=== PATIENT | male | born 1995 | race Caucasian/White ===

== ENCOUNTER 2016-04-11 11:50 | Emergency (ER) | payer OTHER ==
[~2016-04-11] VITALS: Ht 167.6 cm; Wt 95.3 kg
[2016-04-11 12:07] VITALS: BP 145/71
--- NOTE | 2016-04-11 12:21 | NUR ---
DR. KUMAR AT BEDSIDE
[2016-04-11] MEDS ORDERED: KETOROLAC 60 MG/2 ML VIAL IM ONE (12:25)
[2016-04-11] MEDS ORDERED: ACETAMIN/CODEINE 120/12MG-5ML 5 ML UDC PO ONE (12:25)
--- NOTE | 2016-04-11 12:42 | NUR ---
PT IN BED, HOB TALKING IN THE PHONE, PT AAO, PAIN LEVEL 10/10
--- NOTE | 2016-04-11 12:43 | NUR ---
PATIENT PRESENTS TO ED WITH DUE TO UPPER BACK PAIN X1 WEEK . PT STATES I DIDNT FALL DOWN BUT I DO A LOT OF RUNNING, DENIES N/V/D; SKIN IS PINK/WARM/DRY; AAOX4 WITH EVEN AND STEADY GAIT; LUNGS CLEAR BL; HR EVEN AND REGULAR; PT DENIES ANY FEVER, CP, SOB, OR COUGH AT THIS TIME; PATIENT STATES PAIN OF 10/10 AT THIS TIME; PATIENT POSITIONED FOR COMFORT; HOB ELEVATED; BEDRAILS UP X2; BED DOWN.
--- NOTE | 2016-04-11 12:50 | NUR ---
PT WENT FOR XRAY VIA [facility].
--- NOTE | 2016-04-11 13:15 | NUR ---
MOTHER AT BEDSIDE, PT STILL IN XRAY.
--- NOTE | 2016-04-11 13:19 | NUR ---
PT BACK FROM [facility],
--- NOTE | 2016-04-11 13:38 | NUR ---
PT AAO, 12/09 PAIN , MOTHER AT BEDSIDE
--- NOTE | 2016-04-11 14:26 | NUR ---
DR. KUMAR AT BEDSIDE
[2016-04-11 14:38] VITALS: BP 118/73
--- NOTE | 2016-04-11 14:39 | NUR ---
Patient discharged with v/s stable. Written and verbal after care instructions given and explained. Patient alert, oriented and verbalized understanding of instructions. Ambulatory with steady gait,USING CANE. All questions addressed prior to discharge. ID band removed. Patient advised to follow up with PMD. Rx of MOTRIN AND TYLENOL WITH CODEINE given. Patient educated on indication of medication including possible reaction and side effects. Opportunity to ask questions provided and answered.MOTHER WITH THE PT
== END 2016-04-11 14:39 | disposition home or self-care (01) ==
LOC: MED 12:06
DX: M54.5 Low back pain (principal); J45.909 Unspecified asthma, uncomplicated; Z88.5 Allergy status to narcotic agent
CPT/HCPCS: 71010; 72072; 96372; 99284; J1885

== ENCOUNTER 2016-06-26 15:57 | Emergency (ER) | payer OTHER ==
[~2016-06-26] VITALS: Ht 175.3 cm; Wt 94.3 kg
[2016-06-26 16:17] VITALS: BP 126/76
--- NOTE | 2016-06-26 16:32 | NUR ---
Patient wheelchair assisted to bed 3 at this time.
[2016-06-26] MEDS ORDERED: NACL 0.9% 1,000 ML IV ONE (16:35)
[2016-06-26] MEDS ORDERED: KETOROLAC 30 MG/ML VIAL IVP ONE (16:35)
[2016-06-26] MEDS ORDERED: ONDANSETRON 4 MG/2 ML VIAL IVP ONE (16:35)
--- NOTE | 2016-06-26 16:35 | NUR ---
21M BIB FAMILY C/O NAUSEA/VOMITING/DIARRHEA X TODAY; PT STATES HAD 10 EPISODES OF DIARRHEA YESTERDAY, AND OVER 10 EPISODES OF VOMITING TODAY; PT C/O THROBBING EPIGASTRIC PAIN, RADIATES X 4 QUADRANTS OF ABDOMEN, 8/10 X TODAY; ABDOMEN SOFT, NON-TENDER, ACTIVE BOWEL SOUNDS X 4 QUADRANTS; PT A&OX4, PERRL, BL LUNG SOUNDS CLEAR, RR EVEN/UNLABORED, SKIN IS WARM/DRY/INTACT AT THIS TIME; PT STATES FEELS FATIGUED; PT PLACED ON MONITOR, RESTING IN BED W/ HOB ELEVATED AND IN LOWEST POSITION; POSITIONED FOR COMFORT; ER MD MADE AWARE OF STATUS. WILL CONTINUE TO MONITOR.
[2016-06-26] MEDS ORDERED: POTASSIUM CHLORIDE 20% 40 MEQ/15 ML UDC PO ONE (17:15)
[2016-06-26] MEDS ORDERED: DIPHENOXYLATE /ATROPINE 2.5 MG TAB PO ONE (17:15)
--- NOTE | 2016-06-26 17:47 | NUR ---
PT AMBULATED TO RESTROOM AT THIS TIME; NO ACUTE DISTRESS NOTED AT THIS TIME.
--- NOTE | 2016-06-26 17:55 | NUR ---
IV removed, catheter intact and site benign. Applied folded 4x4 gauze and tape to stop bleeding. PT TOLERATED PROCEDURE WELL.
[2016-06-26 17:59] VITALS: BP 119/66
--- NOTE | 2016-06-26 17:59 | NUR ---
Patient discharged with v/s stable. Written and verbal after care instructions given and explained. Patient alert, oriented and verbalized understanding of instructions. Ambulatory with steady gait. All questions addressed prior to discharge. ID band removed. Patient advised to follow up with PMD. Rx of POTASSIUM CHLORIDE 20MEQ, ZOFRAN ODT 4MG & LOMOTIL given. Patient educated on indication of medication including possible reaction and side effects. Opportunity to ask questions provided and answered.
== END 2016-06-26 17:59 | disposition home or self-care (01) ==
LOC: MED 15:57
DX: E87.6 Hypokalemia (principal); E86.0 Dehydration; K52.9 Noninfective gastroenteritis and colitis, unspecified; J45.909 Unspecified asthma, uncomplicated; Z88.5 Allergy status to narcotic agent
CPT/HCPCS: 36415; 80053; 82948; 83690; 85025; 96361; 96374; 96375; 99284; J1885; J2405; J7030

== ENCOUNTER 2016-12-16 21:36 | Emergency (ER) | payer OTHER ==
[~2016-12-16] VITALS: Ht 175.3 cm; Wt 54.4 kg
--- NOTE | 2016-12-16 21:46 | NUR ---
PT TAKEN TO BED 8
[2016-12-16 21:51] VITALS: BP 165/100
--- NOTE | 2016-12-16 21:58 | NUR ---
Dr. Whitaker evaluating patient at bedside.
[2016-12-16] MEDS ORDERED: NACL 0.9% 2,000 ML IV ONE (22:00)
[2016-12-16] MEDS ORDERED: LORazepam 2 MG/ML VIAL IVP ONE (22:00)
--- NOTE | 2016-12-16 22:00 | NUR ---
21/M CAME IN UNABLE TO AMBULATE SELF, HE REPORTED HE SMOKED WAX AND MARIJUANA. PT ALERT AND ORIENTED TO SELF BUT WITH DELAYED AND GARBLED SPEECH, GCS 15. PERRLA, 3MM SLUGGISH.LUNG SOUNDS CBTA, SINUS TACHY 115, SATS 98% ON RA. DENIES SOB AT THIS TIME. HX: APPENDECTOMY, DENIES RX AT HOME. PATIENT POSITIONED FOR COMFORT; HOB ELEVATED; BEDRAILS UP X2; BED DOWN. ER MD MADE AWARE OF PT STATUS.
[2016-12-16 22:37] LABS: BARBITURATE, URINE NEG. ng/ml (NEG <=200); BENZODIAZEPINE, URINE NEG. ng/mL (NEG <=200); CANNABINOID, URINE POS. ng/mL (NEG <=50); COCAINE, URINE NEG. ng/mL (NEG <=300); OPIATE, URINE NEG. ng/mL (NEG <=2000); PHENCYCLIDINE SCREEN,URINE NEG. ng/mL (NEG <=25)
[2016-12-16 23:40] VITALS: BP 112/78
--- NOTE | 2016-12-16 23:40 | NUR ---
Patient discharged with v/s stable. Written and verbal after care instructions given and explained. Patient verbalized understanding. Ambulatory with steady gait. All questions addressed prior to discharge. Advised to follow up with PMD. IV removed, catheter intact and site benign. Applied folded 4x4 gauze and tape to stop bleeding.
== END 2016-12-16 23:40 | disposition home or self-care (01) ==
LOC: MED 21:36
DX: F12.10 Cannabis abuse, uncomplicated (principal); J45.909 Unspecified asthma, uncomplicated; Z88.5 Allergy status to narcotic agent
CPT/HCPCS: 80305; 93005; 96361; 96374; 99285; J2060; J7030

== ENCOUNTER 2017-01-24 16:17 | Emergency (ER) | payer OTHER ==
[~2017-01-24] VITALS: Ht 170.2 cm; Wt 72.6 kg
[2017-01-24 16:22] VITALS: BP 132/74
--- NOTE | 2017-01-24 19:33 | NUR ---
AMBULATED TO ER BED 1
--- NOTE | 2017-01-24 19:35 | NUR ---
21/M CAME IN W C/O 10/10 SHARP CHEST, CONSTANT X THIS MORNING. PT REPORTS HAVING GENERALIZED WEAKNESS AND HAD FLU THIS WEEK, C/O PAIN DURING INSPIRATION. 20RR EVEN AND UNLABORED, 100%RA, ALL LUNG SOUNDS CBTA, 88HR EVEN AND REGULAR. DENIES N/V/D,FEVERS, SOB/COUGH AT THIS TIME, BS ACTIVE X 4, ABD SOFT AND ROUND, +TENDERNESS TO EPIGASTRIC AREA. PT PLACED ON [employer].
--- NOTE | 2017-01-24 20:42 | NUR ---
XRAY AT BEDSIDE
[2017-01-24] MEDS ORDERED: KETOROLAC 60 MG/2 ML VIAL IM ONE ×2 (21:18→21:35)
[2017-01-24 21:45] VITALS: BP 113/65
--- NOTE | 2017-01-24 21:45 | NUR ---
Patient discharged with v/s stable. Written and verbal after care instructions given and explained TO MOTHER. Patient verbalized understanding. Ambulatory with steady gait. All questions addressed prior to discharge. Advised to follow up with PMD.
== END 2017-01-24 21:45 | disposition home or self-care (01) ==
LOC: MED 16:17
DX: R53.1 Weakness (principal); R07.89 Other chest pain; B34.9 Viral infection, unspecified; F41.9 Anxiety disorder, unspecified; J45.909 Unspecified asthma, uncomplicated; Z88.5 Allergy status to narcotic agent
CPT/HCPCS: 71010; 93005; 96372; 99284; J1885; Q0092

== ENCOUNTER 2019-02-24 18:55 | Emergency (ER) | payer OTHER ==
[~2019-02-24] VITALS: Ht 175.3 cm; Wt 93.9 kg
[2019-02-24 19:03] VITALS: BP 124/74
--- NOTE | 2019-02-24 22:52 | NUR ---
23 YO M BIB SELF WITH GIRLFRIEND ACCOMPANYING. C/O 09/08 NON RADIATING, POKING LEFT HEEL PAIN X APPROX 2 DAYS. PT STATES HE JUMPED A FENCE AROUND 0200 ON 02/23 AND LANDED WRONG ON FOOT. PT TX'D AT HOME WITH ICE AND IBUPROFEN AND REPORTS TEMPORARY RELIEF AND REDUCTION IN SWELLING. PT STATES HE HAS TO WALK ON HIS TOES; CANNOT BEAR WEIGHT ON HEEL. ALSO REPORTS TINGLING TO HEEL RADIATING INTO TOES. NO DISCOLORATION OR SWELLING NOTED. PEDAL PULSES STRONG, EQUAL. CAP REFILL LESS THAN 3 SECONDS. PMH-- APPENDECTOMY X 10 YEARS AGO RX-- IBUPROFEN YESTERDAY
--- NOTE | 2019-02-25 00:35 | NUR ---
DR BISHOP AT BEDSIDE.
--- NOTE | 2019-02-25 00:40 | NUR ---
NADAID PLACED ON PT FINGER PER REQUEST
--- NOTE | 2019-02-25 00:40 | NUR ---
PATIENT DC BY DR BISHOP. INSTRUCTIONS GIVEN BY DR BISHOP. AMB
[2019-02-25 00:50] VITALS: BP 124/74
== END 2019-02-25 00:50 | disposition home or self-care (01) ==
LOC: MED 18:55
DX: S90.32XA Contusion of left foot, initial encounter (principal); J45.909 Unspecified asthma, uncomplicated; Z90.49 Acquired absence of other specified parts of digestive tract; Z88.5 Allergy status to narcotic agent; X58.XXXA Exposure to other specified factors, initial encounter; Y93.39 Activity, other involving climbing, rappelling and jumping off; Y92.89 Other specified places as the place of occurrence of the external cause; Y99.8 Other external cause status
CPT/HCPCS: 73650; 99283

== ENCOUNTER 2020-09-01 11:13 | Emergency (ER) | payer OTHER ==
[~2020-09-01] VITALS: Ht 175.3 cm; Wt 100.7 kg
[2020-09-01 11:17] VITALS: BP 134/70
--- NOTE | 2020-09-01 11:34 | NUR ---
PT TAKEN TO BED 1.
--- NOTE | 2020-09-01 11:42 | NUR ---
25 YEAR OLD MALE COMPLAINS OF 9/10 SHARP CHEST PAIN X LAST NIGHT. PT STATES PAIN RADIATES TO LEFT ARM. PT DENIES SOB, DENIES N/V/D. PT DENIES PREVIOUS CHEST PAIN IN PAST. PT AOX4, BREATHING EVEN AND UNLABORED, SKIN WAMR AND DRY. BED IN LOWEST POSITION, LOCKED, BED RAIL UPX1. PMH - ASTHMA, HLD, APPENDECTOMY ALLERGIES - MORPHINE
[2020-09-01 12:41] LABS: BASOPHILS % (AUTO) 0.8 % (0.0-2.0); EOSINOPHILS # (AUTO) 0.2 K/uL (0-0.4); HEMATOCRIT 38.5 % (36-52); HEMOGLOBIN 12.9 g/dL (12.0-18.0); LYMPHOCYTES # (AUTO) 1.6 K/uL (2.0-11.5); LYMPHOCYTES % (AUTO) 31.5 % (20.5-51.1); MEAN CORPUSCULAR HEMOGLOBIN 28 pg (27-31); MEAN CORPUSCULAR HGB CONC 34 g/dL (33-37); MEAN CORPUSCULAR VOLUME 83.7 fL (80-94); MONOCYTES # (AUTO) 0.4 K/uL (0.8-1.0); MONOCYTES % (AUTO) 8.1 % (1.7-9.3); NEUTROPHILS # (AUTO) 2.9 K/uL (1.8-7.7); NEUTROPHILS % (AUTO) 56.6 % (42.2-75.2); PLATELET COUNT (AUTO) 255 K/uL (140-450); RED BLOOD CELL COUNT(AUTO) 4.59 MIL/uL (4.20-6.10); RED CELL DISTRIBUTION WIDTH 14.7 % (11.6-13.7); WHITE BLOOD COUNT (AUTO) 5.1 K/uL (4.8-10.8)
[2020-09-01 12:45] LABS: ALBUMIN 4.1 g/dL (3.4-5.0); ANION GAP 9.7 (8-16); CARBON DIOXIDE 27.3 mmol/L (21-32); CREATININE 0.7 mg/dL (0.6-1.3); TOTAL BILIRUBIN 0.3 mg/dL (0.0-1.0)
--- NOTE | 2020-09-01 13:45 | NUR ---
Patient discharged with v/s stable. Written and verbal after care instructions about pleurisy given and explained. Patient verbalized understanding. Ambulatory with steady gait. All questions addressed prior to discharge. Advised to follow up with PMD.
[2020-09-01 13:47] VITALS: BP 134/70
== END 2020-09-01 13:45 | disposition home or self-care (01) ==
LOC: MED 11:13
DX: R07.89 Other chest pain (principal); E78.5 Hyperlipidemia, unspecified; Z90.49 Acquired absence of other specified parts of digestive tract; Z88.5 Allergy status to narcotic agent
CPT/HCPCS: 36415; 71045; 80053; 84484; 85025; 93005; 99285